=== PATIENT | male | born 1975 | race African-American/Black ===

== ENCOUNTER 2017-09-23 16:37 | Inpatient (IN) ==
[2017-09-23] MEDS ORDERED: PANTOPRAZOLE 40 MG VIAL IV STA (17:28)
[2017-09-23] MEDS ORDERED: ONDANSETRON 4 MG/2 ML VIAL IV STA (17:28)
[2017-09-23] MEDS ORDERED: SODIUM CHLORIDE 0.9% 2,000 ML IV STA (17:28)
[2017-09-23 17:36] LABS: Basophils # 0.1 10*3/uL (0.0-0.2); Basophils % 0.5 % (0.0-0.8); Eosinophils # 0.1 10*3/uL (0.0-0.87); Eosinophils % 0.7 % (0.00-10.9); Hematocrit 37.7 VOL% (42.0-52.0); Hemoglobin 12.5 GM/DL (14.0-18.0); Immature Granulocytes Absolute 0.17 #; Lymphocytes # 2.4 10*3/uL (1.4-4.0); Lymphocytes % 13.9 % (21.2-54.2); Mean Corpuscular HGB Conc 33.2 GM/DL (32-36); Mean Corpuscular Hemoglobin 30 PG (27-34); Mean Platelet Volume 9.7 FL (9.6-12.0); Monocytes # 0.6 10*3/uL (0.11-0.8); Monocytes % 3.7 % (1.7-12.7); Neutrophils # 13.5 10*3/uL (1.4-7.4); Neutrophils % 80.2 % (38.7-73.9); Platelet Count 339 T/CUMM (130-400); Red Blood Count 4.19 MC/CUMM (3.8-5.5); Red Cell Distribution Width 13.2 % (9.3-17.3); White Blood Count 16.9 T/CUMM (4-12)
[2017-09-23] MEDS ORDERED: PANTOPRAZOLE 40 MG VIAL IV ONE (17:44)
[2017-09-23] MEDS ORDERED: ONDANSETRON 4 MG/2 ML VIAL ONE (17:44)
[2017-09-23 17:46] LABS: INR 1.1; PT Patient Result 11.2 SECS
[2017-09-23 17:51] LABS: Albumin 3.7 G/DL (3.4-5.0); Calcium 10.4 MG/DL (8.5-10.1); Osmolality,Calculated 297.3 MOS/KG (273-304); Potassium 4.3 MMOL/L (3.5-5.1); Total Protein 6.7 G/DL (6.4-8.3)
[2017-09-23] MEDS ORDERED: SODIUM CHLORIDE 0.9% 1,000 ML IV PRN ×2 (18:24→18:26)
[2017-09-23] MEDS ORDERED: ALBUTEROL 2.5 MG/3 ML NEB RESP TX PRN (20:56)
[2017-09-23] MEDS ORDERED: PROMETHAZINE 25 MG/1 ML VIAL IM PRN (20:56)
[2017-09-23] MEDS ORDERED: ONDANSETRON 4 MG/2 ML VIAL IV PRN (20:56)
[2017-09-23] MEDS ORDERED: NICOTINE 21 MG/24 HR PATCH TRANSDERM PRN (20:56)
[2017-09-23] MEDS: SODIUM CHLORIDE 0.9% 1,000 ML IV SCH (21:15)
[2017-09-23] MEDS: PANTOPRAZOLE 40 MG VIAL IV SCH (21:59)
[2017-09-23] MEDS: MORPHINE 2 MG/1 ML SYRINGE IV PRN (22:04)
[2017-09-23] MEDS: TEMAZEPAM 15 MG CAPSULE PO PRN (22:05)
[2017-09-24 01:48] LABS: Hematocrit 38.2 VOL% (42.0-52.0); Hemoglobin 12.5 GM/DL (14.0-18.0)
[2017-09-24 02:25] LABS: Calcium 9.6 MG/DL (8.5-10.1); Osmolality,Calculated 287.3 MOS/KG (273-304); Potassium 4.2 MMOL/L (3.5-5.1)
[2017-09-24 05:51] LABS: Basophils % 0.4 % (0.0-0.8); Eosinophils # 0.1 10*3/uL (0.0-0.87); Eosinophils % 0.7 % (0.00-10.9); Hematocrit 35.6 VOL% (42.0-52.0); Hemoglobin 11.9 GM/DL (14.0-18.0); Immature Granulocytes % 0.4 %; Immature Granulocytes Absolute 0.04 #; Lymphocytes # 3.5 10*3/uL (1.4-4.0); Lymphocytes % 36.7 % (21.2-54.2); Mean Corpuscular HGB Conc 33.4 GM/DL (32-36); Mean Corpuscular Hemoglobin 29 PG (27-34); Mean Corpuscular Volume 85.6 FL (87-102); Mean Platelet Volume 9.5 FL (9.6-12.0); Monocytes # 0.8 10*3/uL (0.11-0.8); Monocytes % 8.3 % (1.7-12.7); Neutrophils % 53.5 % (38.7-73.9); Platelet Count 226 T/CUMM (130-400); Red Blood Count 4.16 MC/CUMM (3.8-5.5); Red Cell Distribution Width 15.5 % (9.3-17.3); White Blood Count 9.4 T/CUMM (4-12)
[2017-09-24 06:56] LABS: Apearance,Urine CLEAR (Clear); Bilirubin,Urine Negative (Negative); Blood, Urine Negative (Negative); Glucose,Urine (UA) Negative (Negative); Ketones,Urine 20 mg/dL (Negative); Mucus,Urine Occasional /LPF (Occasional); Nitrite,Urine Negative (Negative); Protein,Urine Negative; RBC,Urine 2 /HPF (0-4); Urine Color Yellow (Yellow); Urine Specific Gravity 1.027 (1.001-1.035); Urine Urobilinogen < 2.0 EU/DL (0.2-1.0); WBC,Urine 3 /HPF (0-6)
[2017-09-24] MEDS: SODIUM CHLORIDE 0.9% 1,000 ML IV SCH ×2 (07:20→16:19)
[2017-09-24] MEDS: PANTOPRAZOLE 40 MG VIAL IV SCH ×2 (08:01→21:24)
[2017-09-24 12:26] LABS: Hematocrit 33.6 VOL% (42.0-52.0); Hemoglobin 11.5 GM/DL (14.0-18.0)
[2017-09-24] MEDS ORDERED: PROPOFOL 200 MG/20 ML VIAL IV ONE (12:30)
[2017-09-24] MEDS ORDERED: PHENYLEPHRINE 1 MG/10 ML SYRINGE IV ONE (12:30)
[2017-09-24] MEDS ORDERED: LIDOCAINE 1% 5 ML VIAL ONE (12:30)
[2017-09-24] MEDS ORDERED: ePHEDrine 50 MG/ML AMP ONE (13:44)
[2017-09-24] MEDS: LEVOFLOXACIN INJ 500 MG in PREMIX 1 EACH IV SCH (15:52)
[2017-09-24 16:50] LABS: Hematocrit 34.2 VOL% (42.0-52.0); Hemoglobin 11.3 GM/DL (14.0-18.0)
[2017-09-24] MEDS: TEMAZEPAM 15 MG CAPSULE PO PRN (21:24)
[2017-09-24] MEDS: MORPHINE 2 MG/1 ML SYRINGE IV PRN (21:24)
[2017-09-24 22:36] LABS: Hematocrit 29.6 VOL% (42.0-52.0); Hemoglobin 9.8 GM/DL (14.0-18.0)
[2017-09-25 05:29] LABS: Hemoglobin 9.6 GM/DL (14.0-18.0)
[2017-09-25] MEDS: PANTOPRAZOLE 40 MG VIAL IV SCH ×2 (09:52→21:29)
[2017-09-25] MEDS: SODIUM CHLORIDE 0.9% 1,000 ML IV SCH (14:45)
[2017-09-25] MEDS: LEVOFLOXACIN INJ 500 MG in PREMIX 1 EACH IV SCH (14:53)
[2017-09-25] MEDS: DOCUSATE SODIUM 100 MG CAPSULE PO SCH (21:29)
[2017-09-25] MEDS: MORPHINE 2 MG/1 ML SYRINGE IV PRN (21:39)
[2017-09-25] MEDS: TEMAZEPAM 15 MG CAPSULE PO PRN (21:39)
[2017-09-26] MEDS: MORPHINE 2 MG/1 ML SYRINGE IV PRN (04:59)
[2017-09-26 05:48] LABS: Basophils % 0.5 % (0.0-0.8); Eosinophils # 0.3 10*3/uL (0.0-0.87); Eosinophils % 4.2 % (0.00-10.9); Hematocrit 30.6 VOL% (42.0-52.0); Hemoglobin 9.9 GM/DL (14.0-18.0); Immature Granulocytes % 0.3 %; Immature Granulocytes Absolute 0.02 #; Lymphocytes # 2.6 10*3/uL (1.4-4.0); Mean Corpuscular HGB Conc 32.4 GM/DL (32-36); Mean Corpuscular Hemoglobin 29 PG (27-34); Mean Corpuscular Volume 88.2 FL (87-102); Monocytes # 0.4 10*3/uL (0.11-0.8); Monocytes % 7.1 % (1.7-12.7); Neutrophils # 2.7 10*3/uL (1.4-7.4); Neutrophils % 44.9 % (38.7-73.9); Platelet Count 188 T/CUMM (130-400); Red Blood Count 3.47 MC/CUMM (3.8-5.5); Red Cell Distribution Width 15.7 % (9.3-17.3); White Blood Count 5.9 T/CUMM (4-12)
[2017-09-26 05:59] LABS: Basophils % 0.5 % (0.0-0.8); Eosinophils # 0.3 10*3/uL (0.0-0.87); Eosinophils % 4.5 % (0.00-10.9); Hematocrit 29.7 VOL% (42.0-52.0); Hemoglobin 9.9 GM/DL (14.0-18.0); Immature Granulocytes % 0.2 %; Immature Granulocytes Absolute 0.01 #; Lymphocytes # 2.5 10*3/uL (1.4-4.0); Lymphocytes % 42.6 % (21.2-54.2); Mean Corpuscular HGB Conc 33.3 GM/DL (32-36); Mean Corpuscular Hemoglobin 29 PG (27-34); Mean Corpuscular Volume 86.6 FL (87-102); Mean Platelet Volume 10.1 FL (9.6-12.0); Monocytes # 0.4 10*3/uL (0.11-0.8); Monocytes % 7.4 % (1.7-12.7); Neutrophils # 2.6 10*3/uL (1.4-7.4); Neutrophils % 44.8 % (38.7-73.9); Platelet Count 184 T/CUMM (130-400); Red Blood Count 3.43 MC/CUMM (3.8-5.5); Red Cell Distribution Width 15.6 % (9.3-17.3); White Blood Count 5.8 T/CUMM (4-12)
[2017-09-26 06:00] LABS: Calcium 8.5 MG/DL (8.5-10.1); Osmolality,Calculated 286.7 MOS/KG (273-304); Potassium 3.9 MMOL/L (3.5-5.1)
[2017-09-26 06:04] LABS: Ferritin 75.9 ng/ml (26-388)
[2017-09-26 07:10] LABS: Sedimentation Rate-Westergren 5 MM/HR (0-15)
[2017-09-26] MEDS: PANTOPRAZOLE 40 MG VIAL IV SCH (08:42)
[2017-09-26] MEDS: DOCUSATE SODIUM 100 MG CAPSULE PO SCH (08:43)
[2017-09-26] MEDS ORDERED: POLYETHYLENE GLYCOL POWDER 17 GM PACK PO SCH (09:00)
[2017-09-26 09:49] LABS: Folate 5.9 NG/ML (5.4-24.0); Vitamin B12 440 PG/ML (211-911)
[2017-09-26 11:31] VITALS: BP 105/74
[2017-09-26] MEDS ORDERED: DOXYCYCLINE HYCLATE 100 MG CAPSULE PO SCH (21:00)
[2017-09-27] MEDS ORDERED: PANTOPRAZOLE 40 MG TABLET PO SCH (09:00)
== END 2017-09-26 12:42 | disposition home or self-care (01) | DRG 220 ==
LOC: N.ED 16:37 → N.EDINP 18:56 → N.CC 20:46 → N.3E 09-25 15:39
PROVIDERS: ADMIT Hospitalist; ATTEND Hospitalist

== ENCOUNTER 2019-08-28 07:47 | Inpatient (IN) ==
[2019-08-28] MEDS ORDERED: KETOROLAC 30 MG/1 ML VIAL IV STA (08:17)
[2019-08-28] MEDS ORDERED: SODIUM CHLORIDE 0.9% 1,000 ML IV STA (08:17)
[2019-08-28] MEDS ORDERED: DEXAMETHASONE 10 MG/1 ML VIAL IV STA (08:23)
[2019-08-28 08:37] LABS: Basophils % 0.1 % (0.0-0.8); Eosinophils # 0.1 10*3/uL (0.0-0.87); Eosinophils % 0.6 % (0.00-10.9); Hematocrit 37.2 VOL% (42.0-52.0); Hemoglobin 11.3 GM/DL (14.0-18.0); Immature Granulocytes % 0.9 %; Immature Granulocytes Absolute 0.17 #; Lymphocytes # 1.6 10*3/uL (1.4-4.0); Lymphocytes % 8.6 % (21.2-54.2); Mean Corpuscular HGB Conc 30.4 GM/DL (32-36); Mean Corpuscular Volume 88.8 FL (87-102); Mean Platelet Volume 9.7 FL (9.6-12.0); Monocytes % 3.8 % (1.7-12.7); NRBC # 0.07 10*3/uL; Platelet Count 239 T/CUMM (130-400); Red Blood Count 4.19 MC/CUMM (3.8-5.5); Red Cell Distribution Width 17.2 % (9.3-17.3); White Blood Count 18.3 T/CUMM (4-12)
[2019-08-28 08:56] LABS: Albumin 2.8 G/DL (3.4-5.0); Bilirubin,Total 1.3 MG/DL (0.2-1.0); Calcium 8.7 MG/DL (8.5-10.1); Osmolality,Calculated 268.2 MOS/KG (273-304); Total Protein 6.3 G/DL (6.4-8.3); Uric Acid 4.6 MG/DL (3.5-7.2)
[2019-08-28] MEDS ORDERED: ONDANSETRON 4 MG/2 ML VIAL ONE (09:41)
[2019-08-28] MEDS ORDERED: HYDROmorphone 2 MG/1 ML VIAL ONE (09:41)
[2019-08-28] MEDS ORDERED: HYDROmorphone 2 MG/1 ML VIAL IV STA (09:49)
[2019-08-28] MEDS ORDERED: ONDANSETRON 4 MG/2 ML VIAL IV STA (09:49)
[2019-08-28 10:00] LABS: Apearance,Urine CLEAR (Clear); Bilirubin,Urine Negative (Negative); Blood, Urine Negative (Negative); Glucose,Urine (UA) Negative (Negative); Ketones,Urine Negative (Negative); Mucus,Urine Occasional /LPF (Occasional); Nitrite,Urine Negative (Negative); Protein,Urine Negative; RBC,Urine 3 /HPF (0-4); Urine Color Yellow (Yellow); Urine Specific Gravity 1.024 (1.001-1.035); WBC,Urine <1 /HPF (0-6)
[2019-08-28] MEDS ORDERED: ACETAMINOPHEN 325 MG TABLET PO PRN (12:12)
[2019-08-28] MEDS ORDERED: CYCLOBENZAPRINE 10 MG TABLET PO PRN (12:15)
[2019-08-28] MEDS ORDERED: ENOXAPARIN 40 MG/0.4 ML SYRINGE SUBCUT SCH (12:30)
[2019-08-28] MEDS: SODIUM CHLORIDE 0.9% 1,000 ML IV SCH ×3 (14:30→22:28)
[2019-08-28] MEDS: GABAPENTIN 300 MG CAPSULE PO SCH ×2 (14:30→21:32)
[2019-08-28] MEDS: MORPHINE 4 MG/1 ML VIAL IV PRN ×2 (15:05→19:35)
[2019-08-28] MEDS: ONDANSETRON 4 MG/2 ML VIAL IV PRN (15:07)
[2019-08-28] MEDS ORDERED: INFLUENZA VIRUS VACCINE 0.5 ML SYRINGE IM ONE (17:42)
[2019-08-28] MEDS ORDERED: DEXAMETHASONE INJ 10 MG in SODIUM CHLORIDE 0.9% 50 ML IV ONE ×2 (19:00→20:00)
[2019-08-28] MEDS ORDERED: DEXAMETHASONE 4 MG TABLET PO SCH (21:00)
[2019-08-28] MEDS: APIXABAN 5 MG TABLET PO SCH (21:32)
[2019-08-28] MEDS: guaiFENesin/CODEINE 5 ML LIQUID PO PRN (22:24)
[2019-08-29] MEDS: MORPHINE 4 MG/1 ML VIAL IV PRN ×2 (00:15→05:13)
[2019-08-29] MEDS: DEXAMETHASONE 4 MG/1 ML VIAL IV SCH ×4 (00:15→18:27)
[2019-08-29] MEDS: ONDANSETRON 4 MG/2 ML VIAL IV PRN (05:13)
[2019-08-29] MEDS ORDERED: LORazepam 2 MG/1 ML VIAL IM ONE (07:14)
[2019-08-29] MEDS ORDERED: LORazepam 2 MG/1 ML VIAL IV ONE (07:21)
[2019-08-29] MEDS: guaiFENesin/CODEINE 5 ML LIQUID PO PRN (07:30)
[2019-08-29 07:33] LABS: HIV Antigen/Antibody Result Nonreactive (Nonreactive)
[2019-08-29] MEDS ORDERED: oxyCODONE IR 5 MG TABLET PO PRN (08:49)
[2019-08-29] MEDS: APIXABAN 5 MG TABLET PO SCH ×2 (11:58→20:19)
[2019-08-29] MEDS: PANTOPRAZOLE 40 MG TABLET PO SCH (11:58)
[2019-08-29] MEDS: FOLIC ACID 1 MG TABLET PO SCH (11:59)
[2019-08-29] MEDS: GABAPENTIN 300 MG CAPSULE PO SCH ×3 (11:59→20:19)
[2019-08-29] MEDS ORDERED: chlorproMAZINE INJ 25 MG in SODIUM CHLORIDE 0.9% 100 ML IV ONE (14:36)
[2019-08-29] MEDS ORDERED: chlorproMAZINE 25 MG TABLET PO ONE (14:48)
[2019-08-29] MEDS: SODIUM CHLORIDE 0.9% 1,000 ML IV SCH (20:36)
[2019-08-30] MEDS: DEXAMETHASONE 4 MG/1 ML VIAL IV SCH ×2 (01:22→08:29)
[2019-08-30] MEDS: APIXABAN 5 MG TABLET PO SCH ×2 (08:24→21:32)
[2019-08-30] MEDS: GABAPENTIN 300 MG CAPSULE PO SCH ×3 (08:24→21:32)
[2019-08-30] MEDS: PANTOPRAZOLE 40 MG TABLET PO SCH (08:24)
[2019-08-30] MEDS: FOLIC ACID 1 MG TABLET PO SCH (08:24)
[2019-08-30] MEDS ORDERED: HYDROmorphone 2 MG/1 ML VIAL IV PRN (08:38)
[2019-08-30] MEDS: POLYETHYLENE GLYCOL POWDER 17 GM PACK PO SCH (10:15)
[2019-08-30] MEDS ORDERED: DEXAMETHASONE 10 MG/1 ML VIAL IV SCH (13:00)
[2019-08-30] MEDS: TEMAZEPAM 15 MG CAPSULE PO PRN (21:33)
[2019-08-30] MEDS ORDERED: LACTULOSE 20 GM/30 ML UDCUP PO PRN (23:01)
[2019-08-30] MEDS ORDERED: SODIUM PHOSPHATE ENEMA 133 ML BOTTLE RECTAL ONE (23:02)
[2019-08-31] MEDS: DEXAMETHASONE INJ 10 MG in SODIUM CHLORIDE 0.9% 50 ML IV SCH ×2 (00:19→13:45)
[2019-08-31 07:03] LABS: Basophils % 0.1 % (0.0-0.8); Eosinophils % 0.1 % (0.00-10.9); Hematocrit 35.1 VOL% (42.0-52.0); Hemoglobin 11.3 GM/DL (14.0-18.0); Immature Granulocytes Absolute 0.16 #; Lymphocytes # 0.9 10*3/uL (1.4-4.0); Lymphocytes % 5.7 % (21.2-54.2); Mean Corpuscular HGB Conc 32.2 GM/DL (32-36); Mean Platelet Volume 10.2 FL (9.6-12.0); Monocytes % 0.9 % (1.7-12.7); NRBC # 0.18 10*3/uL; Neutrophils % 92.2 % (38.7-73.9); Platelet Count 214 T/CUMM (130-400); Red Blood Count 4.08 MC/CUMM (3.8-5.5); Red Cell Distribution Width 16.5 % (9.3-17.3); White Blood Count 16.4 T/CUMM (4-12)
[2019-08-31 07:23] LABS: Calcium 9.1 MG/DL (8.5-10.1)
[2019-08-31 08:01] LABS: Band Neutrophils 3 % (0-10); Hypochromasia 1+; Lymphocytes 8 % (20-55); Nucleated Red Blood Cells 2 (0-5); Segmented Neutrophils 88 % (50-85); Total Cells Counted 100
[2019-08-31 08:02] LABS: Anisocytosis 1+; Microcytosis 1+; Ovalocytes Slight; Platelet Estimate Normal
[2019-08-31] MEDS: SODIUM CHLORIDE 0.9% 1,000 ML IV SCH (08:16)
[2019-08-31] MEDS: GABAPENTIN 300 MG CAPSULE PO SCH ×3 (08:40→21:19)
[2019-08-31] MEDS: PANTOPRAZOLE 40 MG TABLET PO SCH (08:40)
[2019-08-31] MEDS: FOLIC ACID 1 MG TABLET PO SCH (08:40)
[2019-08-31] MEDS: APIXABAN 5 MG TABLET PO SCH ×2 (08:40→21:20)
[2019-08-31] MEDS: POLYETHYLENE GLYCOL POWDER 17 GM PACK PO SCH (08:41)
[2019-08-31] MEDS: TEMAZEPAM 15 MG CAPSULE PO PRN (21:20)
[2019-09-01] MEDS: DEXAMETHASONE INJ 10 MG in SODIUM CHLORIDE 0.9% 50 ML IV SCH ×2 (01:20→16:21)
[2019-09-01] MEDS: SODIUM CHLORIDE 0.9% 1,000 ML IV SCH ×2 (01:55→16:20)
[2019-09-01 05:06] LABS: Basophils % 0.1 % (0.0-0.8); Eosinophils # 0.1 10*3/uL (0.0-0.87); Eosinophils % 0.9 % (0.00-10.9); Hematocrit 35.2 VOL% (42.0-52.0); Hemoglobin 11.1 GM/DL (14.0-18.0); Immature Granulocytes % 4.3 %; Immature Granulocytes Absolute 0.52 #; Lymphocytes # 1.2 10*3/uL (1.4-4.0); Lymphocytes % 9.7 % (21.2-54.2); Mean Corpuscular HGB Conc 31.5 GM/DL (32-36); Mean Corpuscular Volume 87.6 FL (87-102); Mean Platelet Volume 10.9 FL (9.6-12.0); Monocytes % 1.7 % (1.7-12.7); NRBC # 0.27 10*3/uL; Neutrophils % 83.3 % (38.7-73.9); Platelet Count 154 T/CUMM (130-400); Red Blood Count 4.02 MC/CUMM (3.8-5.5); Red Cell Distribution Width 16.1 % (9.3-17.3)
[2019-09-01 05:19] LABS: Calcium 9.2 MG/DL (8.5-10.1); Osmolality,Calculated 267.4 MOS/KG (273-304)
[2019-09-01 05:35] LABS: Hypochromasia 1+; Lymphocytes 16 % (20-55); Nucleated Red Blood Cells 3 (0-5); Platelet Estimate Adequate; Segmented Neutrophils 82 % (50-85); Total Cells Counted 100
[2019-09-01 05:36] LABS: Microcytosis Slight
[2019-09-01] MEDS ORDERED: LORazepam 2 MG/1 ML VIAL IV ONE ×2 (06:42→13:20)
[2019-09-01 07:50] LABS: Barbiturates Screen,Urine Negative (Negative); Benzodiazepines Screen,Urine Positive (Negative); Phencyclidine Screen,Urine Negative (Negative)
[2019-09-01 07:51] LABS: Cannabinoid Screen,Urine Positive (Negative); Opiate Screen,Urine Positive (Negative)
[2019-09-01] MEDS: PANTOPRAZOLE 40 MG TABLET PO SCH (08:19)
[2019-09-01] MEDS: FOLIC ACID 1 MG TABLET PO SCH (08:19)
[2019-09-01] MEDS: GABAPENTIN 300 MG CAPSULE PO SCH ×2 (08:19→16:21)
[2019-09-01] MEDS: APIXABAN 5 MG TABLET PO SCH ×2 (08:19→20:26)
[2019-09-01] MEDS: POLYETHYLENE GLYCOL POWDER 17 GM PACK PO SCH (08:21)
[2019-09-01] MEDS ORDERED: GABAPENTIN 300 MG CAPSULE PO PRN (19:41)
[2019-09-01] MEDS: MELATONIN 3 MG TABLET PO PRN (22:54)
[2019-09-02] MEDS: DEXAMETHASONE INJ 10 MG in SODIUM CHLORIDE 0.9% 50 ML IV SCH ×2 (00:14→13:10)
[2019-09-02 06:16] LABS: Albumin 2.6 G/DL (3.4-5.0); Bilirubin,Direct 0.2 MG/DL (0.0-0.20); Bilirubin,Total 1.2 MG/DL (0.2-1.0); Calcium 8.7 MG/DL (8.5-10.1); Osmolality,Calculated 269.2 MOS/KG (273-304); Total Protein 5.7 G/DL (6.4-8.3)
[2019-09-02 06:41] LABS: Basophils % 0.2 % (0.0-0.8); Eosinophils # 0.1 10*3/uL (0.0-0.87); Eosinophils % 1.2 % (0.00-10.9); Hematocrit 32.1 VOL% (42.0-52.0); Hemoglobin 10.3 GM/DL (14.0-18.0); Immature Granulocytes % 9.9 %; Lymphocytes # 1.1 10*3/uL (1.4-4.0); Lymphocytes % 17.9 % (21.2-54.2); Mean Corpuscular HGB Conc 32.1 GM/DL (32-36); Mean Corpuscular Volume 86.3 FL (87-102); Mean Platelet Volume 11.3 FL (9.6-12.0); Monocytes % 6.6 % (1.7-12.7); NRBC # 0.24 10*3/uL; Neutrophils % 64.2 % (38.7-73.9); Red Blood Count 3.72 MC/CUMM (3.8-5.5); Red Cell Distribution Width 16.7 % (9.3-17.3)
[2019-09-02 06:44] LABS: Platelet Count 110 T/CUMM (130-400)
[2019-09-02 06:50] LABS: Folate 13.5 NG/ML (5.4-24.0); Vitamin B12 > 2000 PG/ML (211-911)
[2019-09-02 07:14] LABS: Anisocytosis 2+; Lymphocytes 15 % (20-55); Macrocytosis 2+; Platelet Estimate Decreased; Segmented Neutrophils 81 % (50-85); Total Cells Counted 100
[2019-09-02 07:15] LABS: Hypochromasia Slight; Target Cells 1+
[2019-09-02] MEDS: SODIUM CHLORIDE 0.9% 1,000 ML IV SCH ×2 (07:27→16:44)
[2019-09-02 08:04] LABS: RPR Confirm - Less than 1 yr NONREACTIVE (Nonreactive)
[2019-09-02] MEDS: LORazepam 2 MG/1 ML VIAL IV SCH ×2 (08:56→10:39)
[2019-09-02] MEDS: POLYETHYLENE GLYCOL POWDER 17 GM PACK PO SCH (09:57)
[2019-09-02] MEDS: APIXABAN 5 MG TABLET PO SCH ×2 (09:59→20:16)
[2019-09-02] MEDS: FOLIC ACID 1 MG TABLET PO SCH (10:00)
[2019-09-02] MEDS: PANTOPRAZOLE 40 MG TABLET PO SCH (10:01)
[2019-09-02] MEDS: MORPHINE 4 MG/1 ML VIAL IV PRN ×2 (11:43→19:18)
[2019-09-02] MEDS: ONDANSETRON 4 MG/2 ML VIAL IV PRN (19:17)
[2019-09-02] MEDS: MELATONIN 3 MG TABLET PO PRN (22:23)
[2019-09-03] MEDS: DEXAMETHASONE INJ 10 MG in SODIUM CHLORIDE 0.9% 50 ML IV SCH ×2 (00:45→14:07)
[2019-09-03 05:15] LABS: Eosinophils % 0.8 % (0.00-10.9); Hematocrit 31.3 VOL% (42.0-52.0); Hemoglobin 10.2 GM/DL (14.0-18.0); Immature Granulocytes % 5.8 %; Immature Granulocytes Absolute 0.22 #; Lymphocytes # 0.5 10*3/uL (1.4-4.0); Lymphocytes % 14.3 % (21.2-54.2); Mean Corpuscular HGB Conc 32.6 GM/DL (32-36); Mean Corpuscular Volume 85.8 FL (87-102); Mean Platelet Volume 11.1 FL (9.6-12.0); Monocytes % 5.6 % (1.7-12.7); Neutrophils % 73.5 % (38.7-73.9); Red Blood Count 3.65 MC/CUMM (3.8-5.5); Red Cell Distribution Width 16.9 % (9.3-17.3); White Blood Count 3.8 T/CUMM (4-12)
[2019-09-03 05:27] LABS: Platelet Count 90 T/CUMM (130-400)
[2019-09-03 05:32] LABS: Calcium 8.2 MG/DL (8.5-10.1); Osmolality,Calculated 267.4 MOS/KG (273-304)
[2019-09-03 05:45] LABS: Apearance,Urine CLEAR (Clear); Bacteria,Urine Occasional /HPF (Few); Bilirubin,Urine Negative (Negative); Blood, Urine Negative (Negative); Glucose,Urine (UA) 50 mg/dL (Negative); Hyaline Casts,Urine 1 /LPF (0-3); Ketones,Urine Negative (Negative); Mucus,Urine Occasional /LPF (Occasional); Nitrite,Urine Negative (Negative); Protein,Urine Negative; RBC,Urine 2 /HPF (0-4); Urine Color Yellow (Yellow); Urine Specific Gravity 1.025 (1.001-1.035); WBC,Urine 1 /HPF (0-6)
[2019-09-03 05:52] LABS: Band Neutrophils 1 % (0-10); Lymphocytes 15 % (20-55); Nucleated Red Blood Cells 3 (0-5); Segmented Neutrophils 78 % (50-85); Total Cells Counted 100
[2019-09-03 05:53] LABS: Hypochromasia 1+; Microcytosis Slight; Platelet Estimate Decreased
[2019-09-03 07:05] LABS: Barbiturates Screen,Urine Negative (Negative); Benzodiazepines Screen,Urine Negative (Negative); Cannabinoid Screen,Urine Negative (Negative); Opiate Screen,Urine Positive (Negative); Phencyclidine Screen,Urine Negative (Negative)
[2019-09-03] MEDS: POLYETHYLENE GLYCOL POWDER 17 GM PACK PO SCH (09:33)
[2019-09-03] MEDS: FOLIC ACID 1 MG TABLET PO SCH (09:33)
[2019-09-03] MEDS: APIXABAN 5 MG TABLET PO SCH ×2 (09:33→21:11)
[2019-09-03] MEDS: PANTOPRAZOLE 40 MG TABLET PO SCH (09:34)
[2019-09-03] MEDS: LORazepam 2 MG/1 ML VIAL IV SCH (09:44)
[2019-09-03] MEDS: SODIUM CHLORIDE 0.9% 1,000 ML IV SCH (11:00)
[2019-09-03] MEDS: MORPHINE 4 MG/1 ML VIAL IV PRN (14:51)
[2019-09-03] MEDS: MELATONIN 3 MG TABLET PO PRN (21:11)
[2019-09-04] MEDS ORDERED: chlorproMAZINE 25 MG TABLET PO ONE (01:35)
[2019-09-04] MEDS: DEXAMETHASONE INJ 10 MG in SODIUM CHLORIDE 0.9% 50 ML IV SCH (02:32)
[2019-09-04] MEDS: MORPHINE 4 MG/1 ML VIAL IV PRN (04:45)
[2019-09-04] MEDS: SODIUM CHLORIDE 0.9% 1,000 ML IV SCH (05:41)
[2019-09-04 06:15] LABS: Basophils % 0.2 % (0.0-0.8); Eosinophils % 0.4 % (0.00-10.9); Hematocrit 31.4 VOL% (42.0-52.0); Hemoglobin 10.1 GM/DL (14.0-18.0); Immature Granulocytes % 2.2 %; Immature Granulocytes Absolute 0.12 #; Lymphocytes # 0.5 10*3/uL (1.4-4.0); Lymphocytes % 10.1 % (21.2-54.2); Mean Corpuscular HGB Conc 32.2 GM/DL (32-36); Mean Corpuscular Volume 86.3 FL (87-102); Mean Platelet Volume 10.1 FL (9.6-12.0); Monocytes % 9.5 % (1.7-12.7); NRBC # 0.08 10*3/uL; Neutrophils % 77.6 % (38.7-73.9); Platelet Count 85 T/CUMM (130-400); Red Blood Count 3.64 MC/CUMM (3.8-5.5); Red Cell Distribution Width 17.2 % (9.3-17.3); White Blood Count 5.4 T/CUMM (4-12)
[2019-09-04 06:35] LABS: Calcium 8.3 MG/DL (8.5-10.1); Osmolality,Calculated 271.1 MOS/KG (273-304)
[2019-09-04 06:46] LABS: Hypochromasia 1+; Lymphocytes 12 % (20-55); Nucleated Red Blood Cells 1 (0-5); Platelet Estimate Decreased; Segmented Neutrophils 83 % (50-85); Total Cells Counted 100
[2019-09-04 06:47] LABS: Microcytosis Slight
[2019-09-04] MEDS: POLYETHYLENE GLYCOL POWDER 17 GM PACK PO SCH (08:08)
[2019-09-04] MEDS: PANTOPRAZOLE 40 MG TABLET PO SCH (08:09)
[2019-09-04] MEDS: FOLIC ACID 1 MG TABLET PO SCH (08:09)
[2019-09-04] MEDS: APIXABAN 5 MG TABLET PO SCH (08:09)
[2019-09-04] MEDS: LORazepam 2 MG/1 ML VIAL IV SCH (10:45)
[2019-09-04 11:51] VITALS: BP 128/76
== END 2019-09-04 13:46 | disposition home health service (06) | DRG 136 ==
LOC: N.ED 07:47 → SUATTDRO 12:12 → N.EDINP 12:12 → N.4E 13:29
PROVIDERS: ADMIT Internal Medicine; ATTEND Internal Medicine

== ENCOUNTER 2019-10-04 11:55 | Inpatient (IN) ==
[2019-10-04] MEDS ORDERED: SODIUM CHLORIDE 0.9% 1,000 ML IV STA (12:35)
[2019-10-04] MEDS ORDERED: AZITHROMYCIN INJ 500 MG in SODIUM CHLORIDE 0.9% 250 ML IV STA (12:35)
[2019-10-04] MEDS ORDERED: VANCOMYCIN INJ 1,000 MG in SODIUM CHLORIDE 0.9% 250 ML IV STA (12:35)
[2019-10-04] MEDS ORDERED: LEVOFLOXACIN INJ 750 MG in PREMIX 1 EACH IV STA (12:35)
[2019-10-04 13:44] LABS: Basophils % 0.4 % (0.0-0.8); Eosinophils # 0.1 10*3/uL (0.0-0.87); Eosinophils % 1.2 % (0.00-10.9); Hematocrit 36.8 VOL% (42.0-52.0); Hemoglobin 11.1 GM/DL (14.0-18.0); Immature Granulocytes % 2.8 %; Immature Granulocytes Absolute 0.32 #; Lymphocytes % 8.6 % (21.2-54.2); Mean Corpuscular HGB Conc 30.2 GM/DL (32-36); Mean Corpuscular Volume 91.1 FL (87-102); Monocytes % 6.1 % (1.7-12.7); NRBC # 0.35 10*3/uL; Neutrophils % 80.9 % (38.7-73.9); Platelet Count 186 T/CUMM (130-400); Red Blood Count 4.04 MC/CUMM (3.8-5.5); Red Cell Distribution Width 20.8 % (9.3-17.3); White Blood Count 11.3 T/CUMM (4-12)
[2019-10-04 13:53] LABS: Albumin 2.5 G/DL (3.4-5.0); Bilirubin,Total 0.7 MG/DL (0.2-1.0); Calcium 8.9 MG/DL (8.5-10.1); Osmolality,Calculated 276.5 MOS/KG (273-304); Total Protein 6.3 G/DL (6.4-8.3)
[2019-10-04] MEDS ORDERED: FUROSEMIDE 40 MG/4 ML VIAL IV STA (14:01)
[2019-10-04 14:50] LABS: ABG HCO3 24.3 MMOL/L (20-26); ABG Oxygen Saturation 90.3 % (95-100); ABG PCO2 28.7 MM HG (35-48); ABG PH 7.499 (7.35-7.45); ABG PO2 56.9 MM HG (80-95); ABG TCO2 20.1 MMOL/L (23-27); Allen Test Positive
[2019-10-04] MEDS ORDERED: ONDANSETRON 4 MG/2 ML VIAL IV PRN ×2 (15:26)
[2019-10-04] MEDS ORDERED: ACETAMINOPHEN 325 MG TABLET PO PRN (15:26)
[2019-10-04] MEDS ORDERED: MYLANTA/LIDO VISC 2:1 300 ML BOTTLE SWISH/SPIT PRN (15:26)
[2019-10-04] MEDS ORDERED: DEXTROSE 10% 250 ML BAG IV PRN (15:26)
[2019-10-04] MEDS ORDERED: chlorproMAZINE INJ 50 MG in SODIUM CHLORIDE 0.9% 100 ML IV PRN (15:26)
[2019-10-04] MEDS ORDERED: BENZTROPINE 2 MG/2 ML AMP IV PRN (15:26)
[2019-10-04] MEDS ORDERED: TEMAZEPAM 7.5 MG CAPSULE PO PRN (15:26)
[2019-10-04] MEDS ORDERED: chlorproMAZINE INJ 25 MG in SODIUM CHLORIDE 0.9% 100 ML IV PRN (15:26)
[2019-10-04] MEDS ORDERED: diphenhydrAMINE CAP 25 MG CAPSULE PO PRN (15:26)
[2019-10-04] MEDS ORDERED: LACTULOSE 20 GM/30 ML UDCUP PO PRN (15:26)
[2019-10-04] MEDS ORDERED: traMADol 50 MG TABLET PO PRN (15:26)
[2019-10-04] MEDS ORDERED: GLUCAGON 1 MG VIAL IM PRN (15:26)
[2019-10-04] MEDS ORDERED: ALBUTEROL/IPRATROPIUM 3 ML NEB RESP TX PRN (15:26)
[2019-10-04] MEDS ORDERED: MAGNESIUM HYDROXIDE SUSP 30 ML UDCUP PO PRN (15:26)
[2019-10-04] MEDS ORDERED: DOCUSATE SODIUM 100 MG CAPSULE PO PRN (15:26)
[2019-10-04] MEDS ORDERED: ALUMINUM/MAGNES/SIMETH MAX STR 30 ML UDCUP PO PRN (15:26)
[2019-10-04] MEDS ORDERED: PROMETHAZINE 25 MG TABLET PO PRN (15:26)
[2019-10-04] MEDS ORDERED: guaiFENesin 200 MG/10 ML UDCUP PO PRN (15:26)
[2019-10-04] MEDS ORDERED: MYLANTA/LIDO VISC 2:1 300 ML BOTTLE SWISH/SWAL PRN (15:26)
[2019-10-04] MEDS ORDERED: ALPRAZolam 0.25 MG TABLET PO PRN (15:26)
[2019-10-04] MEDS ORDERED: PROMETHAZINE INJ 25 MG in SODIUM CHLORIDE 0.9% 50 ML IV PRN (15:26)
[2019-10-04] MEDS ORDERED: MORPHINE 4 MG/1 ML VIAL IV PRN (15:26)
[2019-10-04] MEDS ORDERED: chlorproMAZINE 25 MG TABLET PO PRN (15:26)
[2019-10-04] MEDS ORDERED: LOPERAMIDE 2 MG CAPSULE PO PRN ×2 (15:26)
[2019-10-04 16:00] LABS: Uric Acid 6.3 MG/DL (3.5-7.2)
[2019-10-04] MEDS: FUROSEMIDE 40 MG/4 ML VIAL IV SCH (18:21)
[2019-10-04] MEDS ORDERED: ACETAMINOPHEN 500 MG TABLET PO ONE (19:42)
[2019-10-04] MEDS: clonazePAM 0.5 MG TABLET PO SCH (19:57)
[2019-10-05 01:34] LABS: Apearance,Urine CLEAR (Clear); Bilirubin,Urine Negative (Negative); Blood, Urine Negative (Negative); Glucose,Urine (UA) Negative (Negative); Hyaline Casts,Urine 7 /LPF (0-3); Ketones,Urine Negative (Negative); Mucus,Urine Many /LPF (Occasional); Nitrite,Urine Negative (Negative); Protein,Urine Negative; RBC,Urine 2 /HPF (0-4); Squamous Epithelial Cell,Urine Occasional /HPF (0-10); Urine Color Yellow (Yellow); Urine Specific Gravity 1.011 (1.001-1.035); Urine Urobilinogen < 2.0 EU/DL (0.2-1.0); WBC,Urine 1 /HPF (0-6)
[2019-10-05] MEDS ORDERED: fentaNYL 25 MCG/HR PATCH TRANSDERM SCH (09:00)
[2019-10-05] MEDS: PANTOPRAZOLE 40 MG TABLET PO SCH (09:38)
[2019-10-05] MEDS: FUROSEMIDE 40 MG/4 ML VIAL IV SCH (09:38)
[2019-10-05] MEDS ORDERED: LEVOFLOXACIN INJ 750 MG in PREMIX 1 EACH IV SCH (12:30)
[2019-10-05] MEDS: LEVOFLOXACIN 750 MG TABLET PO SCH (14:50)
[2019-10-05] MEDS: FUROSEMIDE 40 MG TABLET PO SCH (16:38)
[2019-10-05] MEDS: clonazePAM 0.5 MG TABLET PO SCH (21:39)
[2019-10-06 06:13] LABS: Basophils % 0.3 % (0.0-0.8); Eosinophils # 0.1 10*3/uL (0.0-0.87); Eosinophils % 0.4 % (0.00-10.9); Hematocrit 35.2 VOL% (42.0-52.0); Hemoglobin 10.5 GM/DL (14.0-18.0); Immature Granulocytes % 1.9 %; Immature Granulocytes Absolute 0.22 #; Lymphocytes % 8.7 % (21.2-54.2); Mean Corpuscular HGB Conc 29.8 GM/DL (32-36); Mean Corpuscular Volume 91.4 FL (87-102); Mean Platelet Volume 9.7 FL (9.6-12.0); Monocytes % 8.1 % (1.7-12.7); NRBC # 0.06 10*3/uL; Neutrophils % 80.6 % (38.7-73.9); Platelet Count 194 T/CUMM (130-400); Red Blood Count 3.85 MC/CUMM (3.8-5.5); Red Cell Distribution Width 20.4 % (9.3-17.3); White Blood Count 11.8 T/CUMM (4-12)
[2019-10-06 06:32] LABS: Risk Ratio 5.48; VLDL CHOLESTEROL 31.4 MG/DL
[2019-10-06 06:34] LABS: Albumin 2.4 G/DL (3.4-5.0); Bilirubin,Total 1.1 MG/DL (0.2-1.0); Calcium 9.1 MG/DL (8.5-10.1); Osmolality,Calculated 273.8 MOS/KG (273-304); Total Protein 6.3 G/DL (6.4-8.3)
[2019-10-06] MEDS: LEVOFLOXACIN 750 MG TABLET PO SCH (08:15)
[2019-10-06] MEDS: PANTOPRAZOLE 40 MG TABLET PO SCH (08:15)
[2019-10-06] MEDS: FUROSEMIDE 40 MG TABLET PO SCH (08:15)
[2019-10-06 12:05] VITALS: BP 138/88
[2019-10-06] MEDS ORDERED: DILTIAZEM CD 120 MG CAPSULE PO SCH (14:00)
== END 2019-10-06 17:10 | disposition hospice, home (50) | DRG 139 ==
LOC: N.ED 11:55 → N.EDINP 15:26 → SUATTDRO 15:26 → N.2E 18:05
PROVIDERS: ADMIT Internal Medicine; ATTEND Internal Medicine